=== PATIENT | female | born 2000 | race African-American/Black ===

== ENCOUNTER 2023-07-04 11:08 | Emergency (ER) | payer MEDICAID ==
[~2023-07-04] VITALS: Ht 175.3 cm; Wt 78.0 kg
[2023-07-04 11:12] VITALS: BP 150/97; PULSE 126; RESP 18; TEMP 97.7; O2SAT 99
[2023-07-04] MEDS ORDERED: ONDANSETRON HCL 4MG/2ML INJ IV STA (11:24)
[2023-07-04] MEDS ORDERED: LORAZEPAM 2MG/ML CPJ IV ONE (11:30)
[2023-07-04] MEDS ORDERED: SODIUM CHLORIDE 0.9% 1,000 ML IV ONE (11:30)
[2023-07-04 12:41] LABS: BASOPHILS % 0.3 % (0.0-2.0); EOSINOPHILS % 0.3 % (0.0-5.0); HEMATOCRIT. 43.5 % (36.0-48.0); HEMOGLOBIN. 14.7 g/dL (12.0-16.0); LYMPHOCYTES % 12.5 % (20.0-50.0); MEAN CORPUSCULAR HEMOGLOBIN 31.7 pg (28.0-32.0); MEAN CORPUSCULAR HGB CONC 33.9 g/dL (31.0-37.0); MEAN CORPUSCULAR VOLUME 93.4 fL (81.0-99.0); MEAN PLATELET VOLUME 7.5 fl (7.4-10.4); MONOCYTES % 5.5 % (2.0-8.0); NEUTROPHILS % 81.4 % (40.0-76.0); PLATELET 284 x1000/uL (130-400); RED BLOOD CELL COUNT 4.65 mill/uL (4.2-5.4); RED CELL DISTRIBUTION WIDTH 12.3 % (11.6-14.6); WHITE BLOOD COUNT 9.3 x1000/uL (4.5-11.0)
[2023-07-04 12:55] LABS: CHLORIDE 104 mEq/L (98-107); INDEX HEMOLYSI 1 (1-3); INDEX ICTERIC 1 (1-4); INDEX LIPEMIC 1 (1-3); POTASSIUM 4.1 mEq/L (3.5-5.1); SODIUM 137 mEq/L (136-145)
[2023-07-04 13:15] LABS: HCG SCREEN NEGATIVE
[2023-07-04 13:17] LABS: ALANINE AMINOTRANSFERASE 67 IU/L (13-61); ALBUMIN 4.3 g/dL (3.4-5.0); ASPARTATE AMINOTRANSFERASE 62 IU/L (15-37); BILIRUBIN TOTAL 0.5 mg/dL (0.1-1.0); CALCIUM 9.4 mg/dL (8.5-10.1); CARBON DIOXIDE 27 mEq/L (21-32); CREATININE 0.6 mg/dL (0.6-1.3); ETHANOL BLOOD < 10 mg/dL (<10); GLUCOSE 96 mg/dL (70-105); PROTEIN TOTAL 8.1 g/dL (6.0-8.3); UREA NITROGEN BLOOD 9 mg/dL (7-21)
[2023-07-04] MEDS ORDERED: LORAZEPAM 2MG/ML CPJ IV NR (14:15)
[2023-07-04] MEDS ORDERED: ONDANSETRON HCL 4MG/2ML INJ IV NR (14:15)
[2023-07-04 14:41] LABS: CLARITY URINE CLEAR (CLEAR); COLOR URINE YELLOW (YELLOW); GLUCOSE URINE NEGATIVE (NEGATIVE); KETONES URINE TRACE (NEGATIVE); LEUKOCYTE ESTERASE URINE 2+ (NEGATIVE); NITRITE URINE NEGATIVE (NEGATIVE); OCCULT BLOOD URINE 2+ (NEGATIVE); PROTEIN URINE 1+ (NEGATIVE); SPECIFIC GRAVITY URINE 1.015 (1.005-1.030); UROBILINOGEN URINE 0.2 E.U./dL (0.2-1.0)
[2023-07-04 14:59] LABS: *AMPHETAMINES SCREEN URINE NEGATIVE (NEGATIVE); *BARBITURATES SCREEN URINE NEGATIVE (NEGATIVE); *BENZODIAZEPINES SCREEN URINE NEGATIVE (NEGATIVE); *COCAINE SCREEN URINE NEGATIVE (NEGATIVE); ECSTASY MDMA SCREEN URINE NEGATIVE (NEGATIVE); METHADONE URINE SCREEN NEGATIVE (NEGATIVE); OPIATES URINE SCREEN NEGATIVE (NEGATIVE); PHENCYCLIDINE URINE SCREEN NEGATIVE (NEGATIVE)
[2023-07-04 15:07] LABS: CANNABINOID URINE SCREEN PRESUMTIVE POSITIVE (NEGATIVE)
[2023-07-04] MEDS ORDERED: NITR-87 MT (16:16)
[2023-07-04] MEDS ORDERED: ONDA4TAB11 PO (16:16)
[2023-07-04 17:56] LABS: SQUAMOUS EPITHELIAL CELL URINE 1+ /lpf (RARE/1+)
[2023-07-04 17:57] LABS: BACTERIA URINE 4+; RBC URINE 0-2 /hpf (0-2)
[2023-07-05] MEDS ORDERED: HYDR50TA54 MT (19:39)
[2023-07-05] MEDS ORDERED: TRAZ-251 MT (19:39)
== END 2023-07-04 16:03 | disposition home or self-care (01) ==
LOC: ER 11:31
DX: F41.9 Anxiety disorder, unspecified (principal); F12.10 Cannabis abuse, uncomplicated; R11.10 Vomiting, unspecified
CPT/HCPCS: 80053; 80305; 81003; 81025; 80320; 84703; 83690; 85025; 36415; 93005; 96361; 96374; 96375; 99284; J2060; J2405; J7030; Z7610 ×3; G0480

== ENCOUNTER 2023-07-05 15:10 | Emergency (ER) | payer MEDICAID, OTHER ==
[~2023-07-05] VITALS: Ht 165.1 cm; Wt 65.0 kg
[~2023-07-05 15:10] MED LIST: NITR-87 MT; ONDA4TAB11 PO
[2023-07-05 15:23] VITALS: BP 162/113; RESP 20; TEMP 98.4; O2SAT 99
[2023-07-05 15:39] VITALS: PULSE 95
[2023-07-05] MEDS ORDERED: TRAZ-251 MT (19:39)
[2023-07-05] MEDS ORDERED: HYDR50TA54 MT (19:39)
== END 2023-07-05 18:23 | disposition left against medical advice (07) ==
LOC: ER 15:10
DX: F41.9 Anxiety disorder, unspecified (principal); Z53.21 Procedure and treatment not carried out due to patient leaving prior to being seen by health care provider
CPT/HCPCS: 99281

== ENCOUNTER 2023-07-05 18:37 | Emergency (ER) | payer MEDICAID, OTHER ==
[~2023-07-05] VITALS: Ht 165.1 cm; Wt 65.0 kg
[2023-07-05 18:51] VITALS: O2SAT 100
[2023-07-05] MEDS ORDERED: HYDR50TA54 MT (19:39)
[2023-07-05] MEDS ORDERED: TRAZ-251 MT (19:39)
[2023-07-05] MEDS ORDERED: LORAZEPAM 1MG TABLET PO ONE (19:45)
[2023-07-05 20:44] VITALS: BP 137/89; PULSE 92; RESP 18; TEMP 98.5
== END 2023-07-05 20:47 | disposition home or self-care (01) ==
LOC: ER 18:37
DX: F41.9 Anxiety disorder, unspecified (principal)
CPT/HCPCS: 81025; 99283

== ENCOUNTER 2024-10-11 08:55 | Emergency (ER) | payer MEDICAID ==
[~2024-10-11] VITALS: Ht 167.6 cm; Wt 100.0 kg
[~2024-10-11 08:55] MED LIST changes: +HYDR50TA54 MT; +ONDA-239 PO; -ONDA4TAB11 PO; +TRAZ-251 MT
[2024-10-11 09:33] VITALS: O2SAT 100
[2024-10-11 10:32] LABS: CLARITY URINE TURBID (CLEAR); COLOR URINE RED (YELLOW); GLUCOSE URINE NEGATIVE (NEGATIVE); KETONES URINE 1+ (NEGATIVE); LEUKOCYTE ESTERASE URINE 2+ (NEGATIVE); NITRITE URINE POSITIVE (NEGATIVE); OCCULT BLOOD URINE 2+ (NEGATIVE); PROTEIN URINE 2+ (NEGATIVE); SPECIFIC GRAVITY URINE 1.035 (1.005-1.030); UROBILINOGEN URINE 0.2 E.U./dL (0.2-1.0)
[2024-10-11 11:10] LABS: BACTERIA URINE 4+; RBC URINE TNTC /hpf (0-2); SQUAMOUS EPITHELIAL CELL URINE FEW /lpf (RARE/1+); WBC URINE 15-25 /hpf (0-2)
[2024-10-11] MEDS ORDERED: CEFP100T8 MT (12:01)
[2024-10-11] MEDS: ACETAMINOPHEN 325MG TABLET PO ONE (12:21)
[2024-10-11 12:26] VITALS: BP 148/98; PULSE 103; RESP 18; TEMP 36.9; O2SAT 100
== END 2024-10-11 12:28 | disposition home or self-care (01) ==
LOC: ER 08:55
DX: S09.90XA Unspecified injury of head, initial encounter (principal); N39.0 Urinary tract infection, site not specified; N93.9 Abnormal uterine and vaginal bleeding, unspecified; F41.9 Anxiety disorder, unspecified; Z79.899 Other long term (current) drug therapy; Y04.0XXA Assault by unarmed brawl or fight, initial encounter; Y93.89 Activity, other specified; Y92.89 Other specified places as the place of occurrence of the external cause; Y99.8 Other external cause status
CPT/HCPCS: 70486; 76830; 76856; 81003; 81025; 99285

== ENCOUNTER 2025-02-08 15:49 | Emergency (ER) | payer MEDICAID ==
[~2025-02-08] VITALS: Ht 167.6 cm; Wt 91.0 kg
[~2025-02-08 15:49] MED LIST changes: +CEFP100T8 MT
[2025-02-08 16:03] VITALS: O2SAT 100
[2025-02-08 16:59] LABS: DIFFERENTIAL COMMENT 1; HEMATOCRIT. 39.2 % (36.0-48.0); HEMOGLOBIN. 13.6 g/dL (12.0-16.0); MEAN CORPUSCULAR HEMOGLOBIN 33.2 pg (28.0-32.0); MEAN CORPUSCULAR HGB CONC 34.8 g/dL (31.0-37.0); MEAN CORPUSCULAR VOLUME 95.3 fL (81.0-99.0); MEAN PLATELET VOLUME 7.8 fl (7.4-10.4); PLATELET 281 x1000/uL (130-400); RED BLOOD CELL COUNT 4.11 mill/uL (4.2-5.4); RED CELL DISTRIBUTION WIDTH 12.6 % (11.6-14.6); WHITE BLOOD COUNT 8.7 x1000/uL (4.5-11.0)
[2025-02-08 17:15] LABS: CHLORIDE 102 mEq/L (98-107); POTASSIUM 3.6 mEq/L (3.5-5.1)
[2025-02-08 17:16] LABS: CARBON DIOXIDE 25 mEq/L (21-32); SODIUM 138 mEq/L (136-145)
[2025-02-08 17:17] LABS: CALCIUM 9.6 mg/dL (8.7-10.4); PLATELET ESTIMATE NORMAL
[2025-02-08 17:21] LABS: CREATININE 0.6 mg/dL (0.6-1.0)
[2025-02-08 17:22] LABS: B-HCG QUANTITATIVE 8 mIU/mL (<6); GLUCOSE 83 mg/dL (70-105); UREA NITROGEN BLOOD < 5 mg/dL (9-23)
[2025-02-08 18:14] VITALS: BP 147/100; PULSE 89; RESP 20; TEMP 36.8; O2SAT 100
== END 2025-02-08 18:25 | disposition home or self-care (01) ==
LOC: ER 15:49
DX: O46.90 Antepartum hemorrhage, unspecified, unspecified trimester (principal); Z3A.00 Weeks of gestation of pregnancy not specified
CPT/HCPCS: 36415; 76801; 80048; 84702; 85025; 86850; 86900; 99284